=== PATIENT | male | born 1940 | race Caucasian/White ===

== ENCOUNTER 2016-06-16 13:32 | Inpatient (IN) | payer OTHER, MEDICARE ==
[~2016-06-16] VITALS: Ht 182.9 cm; Wt 98.0 kg
[~2016-06-16 13:32] MED LIST changes: -BUPIVACAINE/EPINEPHRINE 0.25% 50 ML VIAL ONE; -KETOROLAC TROMETHAMINE 30 MG/ML (IVP) VIAL IV PUSH ONE; -LACTATED RINGER'S 1000 ML INJ 1,000 ML ONE; +LACTATED RINGER'S 1000 ML INJ 2,000 ML IV ONE; +NORMOSOL R INJ 2,000 ML IV ONE; +PHENYLEPH/NS 1000 MCG/10 ML SYR IV ONE; +PHENYLEPHRINE HCL 10 MG/ML VIAL IV ONE; -ceFAZolin 2 GM PREMIX 50 ML ONE; -metroNIDAZOLE 500 MG INJ 100 ML IV ONE
[2016-06-16 13:41] VITALS: BP 96/56; PULSE 75; RESP 18; O2SAT 98
[2016-06-16 13:46] VITALS: BP 105/59; PULSE 78; RESP 18; O2SAT 98; O2SAT 99
--- NOTE | 2016-06-16 13:57 | PD ---
HPI Chief Complaint: Bleeding Time Seen by Provider: 13:38 Travel History International Travel<30 days: No Contact w/Intl Traveler<30days: No Traveled to known affect area: No History of Present Illness HPI Patient is a 76-year-old male who presents to emergency room with Dr. Alvarez for evaluation of syncopal episode. Patient had a outpatient cholecystectomy this morning, reports no complications from his cholecystectomy. Patient reports that when he got home, he felt lightheaded and dizzy. As per patient's , patient had multiple syncopal episodes today, reports that when he initially "passed out" patient's was able to catch him. Patient did not hit his head or falls the ground. reports the patient was diaphoretic and pale- appearing, reports that he had 5 episodes of syncope today. The EMS arrived on scene, patient's blood pressure was low with a systolic blood pressures in the 60s. After 1 L and 100 mL of normal saline, patient's blood pressure went up to the low 100s. Patient at this time reports pain to his abdomen. Patient denies chest pain or shortness of breath at this time. Dr. Alvarez at bedside evaluating patient, I-stat labs ordered for further evaluation of symptoms. PFSH Past Medical History ?: Not Social History Tobacco Use: No Allergies-Medications (Allergen,Severity, Reaction): Coded Allergies: No Known Allergies (Unverified , 06/16/16) Review of Systems General / Constitutional: No: Fever Eyes: No: Visual changes HENT: No: Headaches Cardiovascular: Positive: Tachycardia, Diaphoresis, No: Chest Pain or Discomfort Respiratory: No: Shortness of Breath Gastrointestinal: Positive: Abdominal Pain Genitourinary: No: Dysuria Musculoskeletal: No: Pain Skin: No Rash Neurologic: Positive: Syncope, No: Weakness Psychiatric: No: Depression Endocrine: No: Polydipsia Hematologic/Lymphatic: No: Easy Bruising Physical Exam Narrative GENERAL: Patient in moderate distress, hypotensive and emergency room SKIN: Warm and dry. HEAD: Atraumatic. Normocephalic. EYES: Pupils equal and round. No scleral icterus. No injection or drainage. ENT: No nasal bleeding or discharge. Mucous membranes pink and moist. NECK: Trachea midline. No JVD. CARDIOVASCULAR: Patient tachycardic No murmur appreciated. RESPIRATORY: No accessory muscle use. Clear to auscultation. Breath sounds equal bilaterally. GASTROINTESTINAL: Abdomen soft, non-tender, nondistended. Patient's incisions are clean, dry, intact with no obvious drainage MUSCULOSKELETAL: No obvious deformities. No clubbing. No cyanosis. No edema. NEUROLOGICAL: Awake and alert. No obvious cranial nerve deficits. Motor grossly within normal limits. Normal speech. PSYCHIATRIC: Appropriate mood and affect; insight and judgment normal. Data Data Last Documented VS Vital Signs Date Time Temp Pulse Resp B/P Pulse Ox O2 Delivery O2 Flow Rate FiO2 06/16/16 13:46 98 Nasal Cannula 2 06/16/16 13:46 78 18 105/59 Orders I-Stat Profile (06/16/16 13:38) I-Stat Creatinine (06/16/16 13:38) Complete Blood Count With Diff (06/16/16 13:38) Prothrombin Time / Inr (Pt) (06/16/16 13:38) Act Partial Throm Time (Ptt) (06/16/16 13:38) Type And Screen (06/16/16 13:38) Iv Access Insert/Monitor (06/16/16 13:38) Ecg Monitoring (06/16/16 13:38) Oximetry (06/16/16 13:38) Oxygen Administration (06/16/16 13:38) Ckmb (Isoenzyme) Profile (06/16/16 13:39) Troponin I (06/16/16 13:39) Admit Order (Ed Use Only) (06/16/16 13:57) Labs Laboratory Tests Test 06/16/16 13:54 White Blood Count 17.1 TH/MM3 Red Blood Count 3.72 MIL/MM3 Hemoglobin 11.6 GM/DL Bedside Hemoglobin 11.2 G/DL Hematocrit 33.9 % Bedside Hematocrit 33.0 % Mean Corpuscular Volume 91.1 FL Mean Corpuscular Hemoglobin 31.2 PG Mean Corpuscular Hemoglobin 34.2 % Concent Red Cell Distribution Width 12.9 % Platelet Count 283 TH/MM3 Mean Platelet Volume 8.1 FL Neutrophils (%) (Auto) 85.7 % Lymphocytes (%) (Auto) 8.0 % Monocytes (%) (Auto) 5.8 % Eosinophils (%) (Auto) 0.3 % Basophils (%) (Auto) 0.2 % Neutrophils # (Auto) 14.6 TH/MM3 Lymphocytes # (Auto) 1.4 TH/MM3 Monocytes # (Auto) 1.0 TH/MM3 Eosinophils # (Auto) 0.0 TH/MM3 Basophils # (Auto) 0.0 TH/MM3 CBC Comment DIFF FINAL Differential Comment Prothrombin Time 11.4 SEC Prothromb Time International 1.0 RATIO Ratio Activated Partial 23.0 SEC Thromboplast Time Bedside Sodium 139 MMOL/L Bedside Potassium 3.8 MMOL/L Bedside Chloride 104 MMOL/L Bedside Blood Urea Nitrogen 13 MG/DL Bedside Creatinine 0.9 MG/DL Bedside Glucose 268 MG/DL Total Creatine Kinase 35 U/L Troponin I LESS THAN 0.02 NG/ML Blood Type A POSITIVE Antibody Screen NEGATIVE Blood Bank Comment MDM Medical Decision Making Medical Screen Exam Complete: Yes Emergency Medical Condition: Yes Interpretation(s) Vital Signs Date Time Temp Pulse Resp B/P Pulse Ox O2 Delivery O2 Flow Rate FiO2 06/16/16 13:46 98 Nasal Cannula 2 06/16/16 13:46 76 18 98 Room Air 06/16/16 13:41 75 18 96/56 98 EKG at 1339: Normal sinus rhythm at 79 beats a minute, QT/QTc 417/452, patient with no acute ST or T-wave changes Differential Diagnosis Hemoperitoneum, vasovagal episode, dehydration, electrolyte abnormality, ACS Narrative Course Patient is a 76-year-old male who presents to emergency room after syncopal episode today, patient had a elective cholecystectomy this morning by Dr. Alvarez. Patient placed on machine clerical verifier, ekg obtained ISTAT labs ordered for concern of hemoperitoneum Sodium 139 Creatinine 0.9 Potassium 3.8 Chloride 104 BUN to 68 Hemoglobin 11.2 Hematocrit 33% IV fluids started on patient, plan to have patient go to the OR right now for further evaluation of possible intraperitoneal hemorrhage Dr. Alvarez will take pt to OR now Diagnosis Primary Impression: Syncope and collapse Elayne Morrison DO Jun 16, 2016 13:57
[2016-06-16 14:04] LABS: I-STAT POTASSIUM 3.8 MMOL/L (3.5-4.9)
[2016-06-16 14:05] LABS: AUTOMATED NEUTROPHIL # 14.6 TH/MM3 (1.8-7.7); BASOPHIL % 0.2 % (0.0-2.0); EOSINOPHIL % 0.3 % (0.0-4.0); HEMATOCRIT 33.9 % (39.0-51.0); HEMO FLAGS DIFF FINAL; LYMPHOCYTE # 1.4 TH/MM3 (1.0-4.8); MEAN CELL VOLUME 91.1 FL (80.0-100.0); MEAN CORPUSCULAR HEMOGLOBIN 31.2 PG (27.0-34.0); MEAN CORPUSCULAR HGB CONC 34.2 % (32.0-36.0); MONO % 5.8 % (0.0-8.0); NEUT % 85.7 % (16.0-70.0); PLATELET COUNT 283 TH/MM3 (150-450); RED BLOOD COUNT 3.72 MIL/MM3 (4.50-5.90); RED CELL DISTRIBUTION WIDTH 12.9 % (11.6-17.2); WHITE BLOOD COUNT 17.1 TH/MM3 (4.0-11.0)
[2016-06-16 14:10] LABS: PROTHROMBIN TIME - PATIENT 11.4 SEC (9.8-11.6)
[2016-06-16 14:23] LABS: CREATINE KINASE 35 U/L (39-308)
[2016-06-16] MEDS ORDERED: fentaNYL CITRATE 250 MCG/5 ML AMP ONE (14:24)
[2016-06-16] MEDS ORDERED: ACETAMINOPHEN 1000 MG/100 ML VIAL IV ONE (14:24)
[2016-06-16] MEDS ORDERED: KETAMINE HCL 500 MG/5 ML VIAL ONE (14:24)
[2016-06-16] MEDS ORDERED: HEPARIN SODIUM - SQ 10,000 UNITS/ML VIAL ONE (14:29)
[2016-06-16] MEDS ORDERED: BUPIVACAINE/EPINEPHRINE 0.25% PF 30 ML VIAL ONE (15:09)
[2016-06-16] MEDS ORDERED: SUGAMMADEX SODIUM 200 MG/2 ML VIAL IV PUSH ONE ×2 (15:26)
[2016-06-16 15:44] LABS: BLOOD GAS BASE EXCESS -6.5 mmol/L (-2-2); BLOOD GAS CARBOXYHEMOGLOBIN 1.2 % (0-4); BLOOD GAS HCO3 19 mmol/L (22-26); BLOOD GAS O2 HGB SATURATION 97 % (90-100); BLOOD GAS OXYGEN CONTENT 21.8 Vol % (12.0-20.0); BLOOD GAS PCO2 38 mmHg (38-42); BLOOD GAS PO2 231 mmHg (61-120); BLOOD GAS TOTAL HGB 15.7 G/DL (12.0-16.0); CRITICAL VALUE NO; TEMP CORR TO 98.6
[2016-06-16 15:45] LABS: OXYGEN DEVICE VENTILATOR
[2016-06-16 15:46] LABS: DRAW SITE ART LINE; FIO2 100 %; STAT YES; VENT SETTINGS OR
[2016-06-16 16:03] LABS: HEMATOCRIT 28.8 % (39.0-51.0); REVIEW FLAG FINAL
[2016-06-16] MEDS ORDERED: ONDANSETRON HCL 4 MG/2 ML VIAL IV PRN (17:15)
[2016-06-16] MEDS ORDERED: DEXTROSE 50% IN WATER 50 ML VIAL(D50) IV PRN (17:15)
[2016-06-16] MEDS ORDERED: SODIUM CHLORIDE 0.9% FLUSH 5 ML FLUSH IVF PRN (17:15)
[2016-06-16] MEDS ORDERED: diphenhydrAMINE HCL 50 MG/ML VIAL IV PRN (17:15)
[2016-06-16] MEDS ORDERED: NALOXONE HCL 0.4 MG/ML AMP IV PRN (17:15)
[2016-06-16] MEDS ORDERED: Post-op Orders (for Pharmacy) MISC XX ONE (17:15)
[2016-06-16] MEDS ORDERED: ACETAMINOPHEN/HYDROcodone 325 MG/5 MG TAB PO PRN ×2 (17:15)
[2016-06-16] MEDS ORDERED: GLUCAGON 1 MG/ML VIAL IM/SQ PRN (17:15)
--- NOTE | 2016-06-16 17:58 | PD.CONS ---
HPI Service Critical Care Medicine Consult Requested By Dr. Alvarez Reason for Consult Post-op ICU management Primary Care Physician Unknown History of Present Illness 76-year-old male underwent lap-cholecystectomy by Dr. Alvarez today at an outpatient center. Procedure was uncomplicated and he was discharged home in a stable condition. While at home he experienced of syncopal episode for which he is brought here by EMS. As per patient's , patient had multiple syncopal episodes today, reports that when he initially "passed out" patient's was able to catch him. He was taken emergently to OR for exp/lap with no obvious source of bleeding to be found. Review of Systems ROS Unable to obtain, patient lethargic post general anesthesia Past Family Social History Allergies: Coded Allergies: No Known Allergies (Unverified , 06/16/16) Past Medical History DM type 2 HTN Past Surgical History Cholecystectomy 06/16/2016 Reported Medications ASA Glipizide Lisinopril Metformin Simvastatin Vitamin C Vitamin D Active Ordered Medications Current Medications Medications (Trade) Dose Ordered Sig/Darci Route PRN Reason Start Time Stop Time Status Last Admin Dose Admin Sodium Chloride (NS 1000 ml Inj) 1,000 ml @ 100 mls/hr Q10H IV 06/16/16 18:00 IV Flush (NS Flush) 2 ml UNSCH PRN IVF FLUSH AFTER USING IV ACCESS 06/16/16 17:15 IV Flush (NS Flush) 2 ml BID IVF 06/16/16 21:00 Ondansetron HCl (Zofran Inj) 4 mg Q6H PRN IV NAUSEA OR VOMITING 06/16/16 17:15 Pantoprazole Sodium (Protonix Inj) 40 mg Q24H IV 06/16/16 18:00 Diphenhydramine HCl (Benadryl Inj) 25 mg Q6H PRN IV ITCHING 06/16/16 17:15 Miscellaneous Information (Post-op Orders (for Pharmacy)) STAT ONCE XX 06/16/16 17:15 06/16/16 17:16 UNV Acetaminophen/ Hydrocodone Bitart ([place] 5-325 Mg) 1 tab Q4H PRN PO PAIN SCALE 1 TO 5 06/16/16 17:15 Acetaminophen/ Hydrocodone Bitart ([place] 5-325 Mg) 2 tab Q6H PRN PO PAIN SCALE 6 TO 10 06/16/16 17:15 Dextrose (D50w (Vial) Inj) 25 ml UNSCH PRN IV HYPOGLYCEMIA-SEE COMMENTS 06/16/16 17:15 Glucagon (Glucagon Inj) 1 mg UNSCH PRN IM/SQ HYPOGLYCEMIA-SEE COMMENTS 06/16/16 17:15 Naloxone HCl (Narcan Inj) 0.4 mg UNSCH PRN IV RESPIRATORY RATE LESS THAN 10 06/16/16 17:15 Morphine Sulfate (Morphine 1 Mg/ ml [employer]) 30 mg UNSCH IV 06/16/16 17:15 [employer] Dosage Infused (Pha) 1 Q8HR .XX 06/16/16 17:15 Family History Noncontributory Social History Negative x 3 Physical Exam Vital Signs Vital Signs Date Time Temp Pulse Resp B/P Pulse Ox O2 Delivery O2 Flow Rate FiO2 06/16/16 13:46 98 Nasal Cannula 2 06/16/16 13:46 78 18 105/59 98 Room Air 06/16/16 13:46 76 18 98 Room Air 06/16/16 13:46 18 99 Room Air 06/16/16 13:41 75 18 96/56 98 Laboratory Laboratory Tests Test 06/16/16 06/16/16 06/16/16 13:54 15:33 15:48 White Blood Count 17.1 Red Blood Count 3.72 Hemoglobin 11.6 9.9 Bedside Hemoglobin 11.2 Hematocrit 33.9 28.8 Bedside Hematocrit 33.0 Mean Corpuscular Volume 91.1 Mean Corpuscular Hemoglobin 31.2 Mean Corpuscular Hemoglobin 34.2 Concent Red Cell Distribution Width 12.9 Platelet Count 283 Mean Platelet Volume 8.1 Neutrophils (%) (Auto) 85.7 Lymphocytes (%) (Auto) 8.0 Monocytes (%) (Auto) 5.8 Eosinophils (%) (Auto) 0.3 Basophils (%) (Auto) 0.2 Neutrophils # (Auto) 14.6 Lymphocytes # (Auto) 1.4 Monocytes # (Auto) 1.0 Eosinophils # (Auto) 0.0 Basophils # (Auto) 0.0 CBC Comment DIFF FINAL Differential Comment Prothrombin Time 11.4 Prothromb Time International 1.0 Ratio Activated Partial 23.0 Thromboplast Time Bedside Sodium 139 Bedside Potassium 3.8 Bedside Chloride 104 Bedside Blood Urea Nitrogen 13 Bedside Creatinine 0.9 Bedside Glucose 268 Total Creatine Kinase 35 Troponin I LESS THAN 0.02 Blood Type A POSITIVE Antibody Screen NEGATIVE Blood Bank Comment Blood Gas Puncture Site ART LINE Blood Gas Patient Temperature 98.6 Blood Gas HCO3 19 Blood Gas Base Excess -6.5 Blood Gas Oxygen Saturation 97 Arterial Blood pH 7.31 Arterial Blood Partial 38 Pressure CO2 Arterial Blood Partial 231 Pressure O2 Arterial Blood Oxygen Content 21.8 Arterial Blood 1.2 Carboxyhemoglobin Arterial Blood Methemoglobin 1.0 Blood Gas Hemoglobin 15.7 Oxygen Delivery Device VENTILATOR Blood Gas Ventilator Setting OR Blood Gas Inspired Oxygen 100 Result Diagram: 06/16/16 1548 Septic Shock Reassessment Heart: Regular rate and rhythm Lungs: Clear Skin: Warm Peripheral Pulses: Bounding Right Radial Bounding Left Radial Bounding Right Popliteal Bounding Left Popliteal Assessment and Plan Problem List: (1) Syncope and collapse ICD Code: R55 Status: Acute Assessment and Plan Hypotension and syncope - most probably intraabdominal bleed post laparoscopic cholecystectomy - Diagnostic laparoscopy - Exploratory laparotomy - repeat H&H Hemoperitoneum - 750 cc - No obvious bleeding source identified - supportive care DM - hold home p.o. meds - ISS if indicated HTN - normotensive post OP - will resume home dose Lisinopril when p.o. DVT/GI prophylaxis - TEDs/SCDs/Protonix Level 2 Finn Brantley MD Jun 16, 2016 17:58
[2016-06-16] MEDS: SODIUM CHLOR 0.9% 1000 ML INJ 1,000 ML IV SCH (18:00)
--- NOTE | 2016-06-16 18:04 | MH ---
cc: ALDO ARAUJO DATE OF ADMISSION: 06/16/2016 CHIEF COMPLAINT Syncope status post laparoscopic cholecystectomy. HISTORY OF PRESENT ILLNESS Mr. Goodrich is a very pleasant 76-year-old gentleman who underwent a laparoscopic cholecystectomy this morning for chronic cholecystitis at [facility]. Intraoperatively the patient had no blood loss and the surgery was technically very straightforward. The cystic artery and cystic duct were clearly seen and clipped twice proximally and once distally and then divided. The liver bed was completely hemostatic. The patient did well postoperatively, was observed for approximately two hours in the recovery room and was up ambulating and eating crackers and juice without any problem. His took him home and he was home for approximately two hours and doing well when he developed right upper quadrant abdominal pain. He told his the pain was more severe than the postoperative pain he had had earlier in the recovery room. He went to stand up and go to the bathroom and then passed out on the floor. His called 911. Paramedics arrived and noted the patient to have a blood pressure of 60/palp. IV access was obtained and the patient was fluid resuscitated. The patient became more arousable and his called our office. I spoke with her directly and advised that he be brought immediately to [facility] for evaluation. The patient was brought to [facility] by [facility] where he was met by myself and Dr. Morrison. On arrival the patient was awake, alert and oriented. He was complaining of some right upper quadrant abdominal pain. His abdomen was mildly distended certainly more distended than he was this morning when he had his procedure. I-STAT lab was obtained in the emergency department, he was found to have a hemoglobin of 11.0. His preoperative hemoglobin had been 13. The patient's initial blood pressure in the ER was 100/70. EMS reported blood pressures between 70 and 80 systolic up to a high of 110. He had a low grade tachycardia about 110. In the emergency department his tachycardia resolved and his pulse was about 85. Because of his abdominal distension and because of his multiple episodes of hypotension, I advised that he return to the operating room for a diagnostic laparoscopy to rule out any intraabdominal bleeding. The patient and were agreeable. PAST MEDICAL HISTORY Insulin-dependent diabetes mellitus. PAST SURGICAL HISTORY Please see the patient's outpatient chart as his H&P was done this morning. MEDICATIONS Please see outpatient chart. ALLERGIES Please see outpatient chart. SOCIAL HISTORY Please see outpatient chart. FAMILY HISTORY Noncontributory. SOCIAL HISTORY The patient does not smoke or drink. He lives with his [place]. PHYSICAL EXAMINATION GENERAL: This is a pleasant, elderly gentleman who appears slightly pale and a little diaphoretic. He is in no acute distress at this time. His surgical wounds are all clean and dry. VITAL SIGNS: Temperature is 98, pulse is 80, blood pressure is 105/59, respiratory rate is 22. HEENT: Oropharynx is dry with dry lips and dry oropharynx. His sclerae are white. NECK: His neck is supple. No masses. LUNGS: Clear to auscultation bilaterally. HEART: S1, S2. No murmur. ABDOMEN: Soft, distended, mildly tender, no rebound or guarding. Surgical wounds are intact with Steri-Strips in place. EXTREMITIES: Free range of motion x4. NEUROLOGIC: Alert and oriented x3. LABORATORY DATA White blood cell count is 17, hemoglobin 11, platelet count is 283. Electrolytes are all within normal limits, glucose is 268. Troponin is less than 0.02. IMPRESSION Likely postoperative bleeding status post laparoscopic cholecystectomy. Because of the patient's hypotension, I have recommended that he return to the operating room for evaluation. I believe his hemoglobin is falsely elevated, he has not been resuscitated with any significant fluid and his hemoglobin was likely lower than the 11. and patient are agreeable and he will go to the operating room immediately. MD RONNIE Morlaes/FIDELIA /5:23 PM /5:43 PM
[2016-06-16] MEDS ORDERED: DO NOT ADM ANY ANTICOAGULANT DRUGS XX PRN (18:15)
[2016-06-16] MEDS: MORPHINE SULFATE 30 MG/30 ML PCA IV SCH (18:30)
[2016-06-16 18:43] LABS: AUTOMATED NEUTROPHIL # 9.4 TH/MM3 (1.8-7.7); BASOPHIL % 0.1 % (0.0-2.0); HEMATOCRIT 28.8 % (39.0-51.0); HEMO FLAGS DIFF FINAL; LYMPH % 5.1 % (9.0-44.0); LYMPHOCYTE # 0.5 TH/MM3 (1.0-4.8); MEAN CELL VOLUME 90.3 FL (80.0-100.0); MEAN CORPUSCULAR HGB CONC 34.3 % (32.0-36.0); MONO % 6.5 % (0.0-8.0); NEUT % 88.3 % (16.0-70.0); PLATELET COUNT 194 TH/MM3 (150-450); RED BLOOD COUNT 3.19 MIL/MM3 (4.50-5.90); RED CELL DISTRIBUTION WIDTH 12.7 % (11.6-17.2); WHITE BLOOD COUNT 10.7 TH/MM3 (4.0-11.0)
[2016-06-16 18:48] LABS: PROTHROMBIN TIME - PATIENT 11.4 SEC (9.8-11.6)
[2016-06-16] MEDS: PANTOPRAZOLE SODIUM 40 MG VIAL IV SCH (18:50)
--- NOTE | 2016-06-16 20:47 | MP ---
cc: ALDO ARAUJO M.D. DATE OF SURGERY: 06/16/2016 PREOPERATIVE DIAGNOSIS: Hypotension and syncope, status post laparoscopic cholecystectomy. POSTOPERATIVE DIAGNOSIS: 1. Hypotension and syncope, status post laparoscopic cholecystectomy. 2. 750 cc hemoperitoneum. 3. No obvious bleeding source identified. PROCEDURE PERFORMED: 1. Diagnostic laparoscopy. 2. Exploratory laparotomy. SURGEON: Aldo Araujo MD. ANESTHESIA: General endotracheal anesthesia. COMPLICATIONS: None. ESTIMATED BLOOD LOSS: 750 cc hemoperitoneum. FLUIDS: 3 liters IV fluid, lactated Ringer's. 400 cc via cell saver. INDICATIONS FOR PROCEDURE: Mr. Goodrich is a pleasant 76 year-old gentleman who underwent an uneventful laparoscopic cholecystectomy this morning. Surgery was technically very straight forward and no bleeding was encountered. Cystic artery and cystic duct were clearly identified and clipped, twice proximally, once distally and divided. The liver bed was completely hemostatic with no bleeding at all, during removal of the gallbladder. Postoperatively the patient did develop a syncopal episode about five hours after the surgery. He was noted to have a low blood pressure and be pale, and was brought to [facility] where he was met by myself immediately. Based on his hypotension and abdominal distension, I recommended immediate return to the OR to rule out intra-abdominal bleeding. and were in agreement, and I was notified. INTRAOPERATIVE FINDINGS: We found about 600 cc of clotted blood within the abdominal cavity. Laparoscopically we were able to clearly visualize the liver bed which was completely hemostatic. The clips on the cystic artery and cystic duct stump were clearly seen and there was no evidence of bleeding from the clips and no bile leakage. Omentum in the area was also completely hemostatic. Just to ensure there were no additional sources of bleeding, I did elect to go ahead and open the patient in the right upper quadrant via the two 5 millimeter port sites. The abdominal cavity was explored in the right upper quadrant. Large blood clots were removed. The area was packed. On multiple occasions it was irrigated and visualized and we could not identify a significant bleeding source. There was a small amount of oozing off of the cystic duct stump and I did Bovie this with electrocautery Bovie. There was no arterial bleeding noted. There was no significant venous bleeding noted. The liver bed was completely hemostatic. The omentum was inspected in the right upper quadrant. We could not identify a bleeding source. On multiple episodes we packed and repacked the abdominal cavity, and irrigated it out. We could not stimulate any bleeding. Ute pro-coagulant was placed in the right upper quadrant along with the drain to monitor for additional bleeding. The clips on the cystic duct stump appeared to be not closed completely proximally. I elected to go ahead and take them off and I closed the cystic duct with a right angle and 0 silk suture. DETAILS The patient was identified, brought to the operating room, placed supine on the operating room table. After adequate general endotracheal anesthesia was achieved, the abdomen was prepped and draped in standard surgical fashion. Infraumbilical space was reopened. The fascial incision was reopened, the 0 Vicryl suture was removed. A 10 mm blunt port was then placed and the abdomen was insufflated. 30 degree laparoscope was inserted. Immediately we noted several large blood clots and some bloody fluid up in the right upper quadrant. A 10-mm port was placed subxiphoid and then two 5 mm ports were placed in the right upper quadrant. Using a large suction device, all blood was evacuated from the right upper quadrant. Once we did this, the liver bed was elevated with a liver retractor. The liver bed was completely hemostatic. Clips on the cystic artery and cystic duct were clearly seen. There was no evidence of bleeding from the cystic artery and no evidence of bleeding from the liver bed. On the cystic duct stump, there was a slight ooze but no arterial bleeding. I bovied this with the electrocautery Bovie distal to the clips and this oozing stopped. The right upper quadrant was copiously irrigated with normal saline solution. Several large blood clots were encountered and these could not be evacuated with the laparoscopic suction device. We thought we saw some fresh blood and, therefore, I elected to go ahead and open as we could not see any source of bleeding in the right upper quadrant laparoscopically. All ports were then removed. The two 5 millimeter port sites in the right upper quadrant were connected and the skin was opened with a scalpel. The subcutaneous tissue was dissected with electrocautery Bovie. The abdominal wall musculature was divided with the electrocautery Bovie. The peritoneum was divided sharply and the abdomen was entered. Bookwalter retractor was placed. The right upper quadrant was packed off the laparotomy pads. The laparotomy pads and blood clots were then removed. Again the liver bed was completely visualized and there was no bleeding from the liver bed whatsoever. The omentum in the right upper quadrant was also visualized and there was no bleeding from this. The cystic artery and cystic duct stumps were clearly seen and there was no bleeding from either one of these structures. On multiple occasions we irrigated out the right upper quadrant with power irrigation and packed with laparotomy pads and we could not reproduce any bleeding whatsoever. We did this at least three times and carefully inspected all areas of the right upper quadrant in the operative field. I noticed that the clips on the cystic duct stump were opened at the proximal end as the clips did not close completely. I, therefore, elected to remove them and they came off quite easily. The cystic duct stump was clearly seen and a small amount of bile came out. This was grasped with a DeBakey forceps and a right angle was placed on the cystic duct stump. The cystic duct stump was then closed with 0 silk suture underneath the right angle. With this, all bile leak stopped and the clips were removed. The cystic artery clips were intact and carefully inspected, and there was no bleeding. Again we irrigated the right upper quadrant multiple times with power irrigation. We could not reproduce any bleeding. The dome of the liver was palpated and there was no evidence of a tear, and there was no bleeding coming from up above the liver. The omentum in the right upper quadrant was carefully inspected and there was no evidence of bleeding from this. All blood clots were removed from the omentum. All-in-all we evacuated out about 750 cc of blood. This was evacuated through the cell saver and then returned to the patient. Approximately 400 cc was returned. At this point I felt comfortable there was no additional bleeding. We then irrigated out a fifth time and packed it with laparotomy pads and we removed the laparotomy pads after several minutes. They were clean and dry with no bleeding. Again we inspected the cystic artery and cystic duct stumps and there was no evidence of bleeding from the stump and there was no evidence of bile leak from the cystic duct stump. I went ahead and placed an Ute pro-coagulant in the liver bed, along the cystic duct stump and cystic artery stump. This was completely dry and the white powder did not show any evidence of ongoing bleeding. A 10 Danish Juni-Mohan drain was then inserted through a separate stab wound incision in the right upper quadrant. It was placed in the liver bed adjacent to the cystic duct and cystic artery stumps. Omentum was then placed in the right upper quadrant. All laparotomy pads were removed and ensured for the proper counts. Attention was now directed to closure. Closure was accomplished using a #1 loop PDS for the posterior and anterior fascia, with continuous running suture. 0.25% Marcaine was injected into the wound after irrigating out with warm saline solution. Subcutaneous tissue was approximated with 3-0 Vicryl and skin was closed with 4-0 Vicryl. Umbilical port site was then closed with a 0 Vicryl in [id number] fashion. Subxiphoid port site was closed with 4-0 Vicryl. The patient tolerated procedure well. He was hemodynamically stable through the procedure with no known complications. MD RONNIE Morales/COLLEEN /5:30 PM /8:24 PM
[2016-06-16] MEDS: SODIUM CHLORIDE 0.9% FLUSH 5 ML FLUSH IVF SCH (21:00)
[2016-06-16] MEDS: INSULIN NovoLIN REGULAR SUPPLEMENTAL SCALE SQ SCH (21:00)
[2016-06-16] MEDS: PCA - TOTAL MG MORPHINE DELIVERED PER SHIFT SCH (22:00)
[2016-06-17] VITALS (13 sets, daily range): BP systolic 110–152; BP diastolic 44–73; PULSE 72–90; RESP 16–21; TEMP 98.2–98.9; O2SAT 91–99
[2016-06-17] MEDS: PCA - TOTAL MG MORPHINE DELIVERED PER SHIFT SCH ×4 (00:28→22:00)
[2016-06-17] MEDS: SODIUM CHLOR 0.9% 1000 ML INJ 1,000 ML IV SCH ×2 (04:00→13:20)
[2016-06-17 05:58] LABS: AUTOMATED NEUTROPHIL # 6.8 TH/MM3 (1.8-7.7); BASOPHIL % 0.3 % (0.0-2.0); EOSINOPHIL % 0.2 % (0.0-4.0); HEMATOCRIT 26.9 % (39.0-51.0); HEMO FLAGS DIFF FINAL; LYMPH % 12.8 % (9.0-44.0); LYMPHOCYTE # 1.1 TH/MM3 (1.0-4.8); MEAN CELL VOLUME 90.3 FL (80.0-100.0); MEAN CORPUSCULAR HEMOGLOBIN 31.3 PG (27.0-34.0); MEAN CORPUSCULAR HGB CONC 34.7 % (32.0-36.0); NEUT % 78.7 % (16.0-70.0); PLATELET COUNT 189 TH/MM3 (150-450); RED BLOOD COUNT 2.97 MIL/MM3 (4.50-5.90); RED CELL DISTRIBUTION WIDTH 12.7 % (11.6-17.2); WHITE BLOOD COUNT 8.6 TH/MM3 (4.0-11.0)
[2016-06-17 06:20] LABS: BICARBONATE 24.3 MEQ/L (21.0-32.0); POTASSIUM 3.6 MEQ/L (3.5-5.1)
[2016-06-17 06:33] LABS: CALCIUM-PROTEIN CORRECTED 8.5 MG/DL (8.5-10.1)
[2016-06-17] MEDS: INSULIN NovoLIN REGULAR SUPPLEMENTAL SCALE SQ SCH ×4 (07:00→20:49)
--- NOTE | 2016-06-17 07:13 | HHI.CCPN ---
Objective Vital Signs Date Time Temp Pulse Resp B/P Pulse Ox O2 Delivery O2 Flow Rate FiO2 06/17/16 06:00 78 06/17/16 06:00 16 06/17/16 04:00 98.8 112/44 99 06/16/16 23:25 Nasal Cannula 2 Intake and Output 06/16/16 06/16/16 06/17/16 08:00 16:00 00:00 Intake Total 5165 ml Output Total 2800 ml Balance 2365 ml Result Diagram: 06/17/16 0506/17/16 05 Other Results Laboratory Tests Test 06/16/16 15:33 Blood Gas Puncture Site ART LINE Blood Gas Patient Temperature 98.6 Blood Gas HCO3 19 mmol/L (22-26) Blood Gas Base Excess -6.5 mmol/L (-2-2) Blood Gas Oxygen Saturation 97 % (90-100) Arterial Blood pH 7.31 (7.380-7.420) Arterial Blood Partial 38 mmHg (38-42) Pressure CO2 Arterial Blood Partial 231 mmHg Pressure O2 (61-120) Arterial Blood Oxygen Content 21.8 Vol % (12.0-20.0) Arterial Blood 1.2 % (0-4) Carboxyhemoglobin Arterial Blood Methemoglobin 1.0 % (0-2) Blood Gas Hemoglobin 15.7 G/DL (12.0-16.0) Oxygen Delivery Device VENTILATOR Blood Gas Ventilator Setting OR Blood Gas Inspired Oxygen 100 % A/P Problem List: (1) Syncope and collapse ICD Code: R55 Status: Acute Assessment and Plan Hypotension and syncope - Resolved - most probably intraabdominal bleed post laparoscopic cholecystectomy - Post Diagnostic laparoscopy - Post Exploratory laparotomy - repeat H&H stable - 9.9 -> 9.3 Hemoperitoneum - 750 cc - No obvious bleeding source identified - supportive care DM - hold home p.o. meds glyburide and metformin - ISS HTN - normotensive post OP - will resume home dose Lisinopril when p.o. DVT/GI prophylaxis - TEDs/SCDs/Protonix Patient has been comfortable on NC hemodynamically stable in no distress. [facility] will sign off. Please re-consult us if needed. Thank you for allowing us to participate in care of this pleasant gentleman. Level 1 Finn Brantley MD Jun 17, 2016 07:12
--- NOTE | 2016-06-17 08:28 | HHI.PR ---
Subjective Subjective Notes did well overnight, pain controlled with senior drafter, has a sore throat and some sinus drainage. Objective Vitals/I&O Vital Signs Date Time Temp Pulse Resp B/P Pulse Ox O2 Delivery O2 Flow Rate FiO2 06/17/16 06:00 78 06/17/16 06:00 16 06/17/16 04:00 98.8 112/44 99 06/16/16 23:25 Nasal Cannula 2 Labs Laboratory Tests Test 06/16/16 06/16/16 06/16/16 06/16/16 13:54 15:33 15:48 18:26 White Blood Count 17.1 10.7 Red Blood Count 3.72 3.19 Hemoglobin 11.6 9.9 9.9 Bedside Hemoglobin 11.2 Hematocrit 33.9 28.8 28.8 Bedside Hematocrit 33.0 Mean Corpuscular Volume 91.1 90.3 Mean Corpuscular Hemoglobin 31.2 31.0 Mean Corpuscular Hemoglobin 34.2 34.3 Concent Red Cell Distribution Width 12.9 12.7 Platelet Count 283 194 Mean Platelet Volume 8.1 7.3 Neutrophils (%) (Auto) 85.7 88.3 Lymphocytes (%) (Auto) 8.0 5.1 Monocytes (%) (Auto) 5.8 6.5 Eosinophils (%) (Auto) 0.3 0.0 Basophils (%) (Auto) 0.2 0.1 Neutrophils # (Auto) 14.6 9.4 Lymphocytes # (Auto) 1.4 0.5 Monocytes # (Auto) 1.0 0.7 Eosinophils # (Auto) 0.0 0.0 Basophils # (Auto) 0.0 0.0 CBC Comment DIFF FINAL DIFF FINAL Differential Comment Prothrombin Time 11.4 11.4 Prothromb Time International 1.0 1.0 Ratio Activated Partial 23.0 Thromboplast Time Bedside Sodium 139 Bedside Potassium 3.8 Bedside Chloride 104 Bedside Blood Urea Nitrogen 13 Bedside Creatinine 0.9 Bedside Glucose 268 Total Creatine Kinase 35 Troponin I LESS THAN 0.02 Blood Type A POSITIVE Antibody Screen NEGATIVE Blood Bank Comment Blood Gas Puncture Site ART LINE Blood Gas Patient Temperature 98.6 Blood Gas HCO3 19 Blood Gas Base Excess -6.5 Blood Gas Oxygen Saturation 97 Arterial Blood pH 7.31 Arterial Blood Partial 38 Pressure CO2 Arterial Blood Partial 231 Pressure O2 Arterial Blood Oxygen Content 21.8 Arterial Blood 1.2 Carboxyhemoglobin Arterial Blood Methemoglobin 1.0 Blood Gas Hemoglobin 15.7 Oxygen Delivery Device VENTILATOR Blood Gas Ventilator Setting OR Blood Gas Inspired Oxygen 100 Test 06/17/16 05:20 White Blood Count 8.6 Red Blood Count 2.97 Hemoglobin 9.3 Hematocrit 26.9 Mean Corpuscular Volume 90.3 Mean Corpuscular Hemoglobin 31.3 Mean Corpuscular Hemoglobin 34.7 Concent Red Cell Distribution Width 12.7 Platelet Count 189 Mean Platelet Volume 7.9 Neutrophils (%) (Auto) 78.7 Lymphocytes (%) (Auto) 12.8 Monocytes (%) (Auto) 8.0 Eosinophils (%) (Auto) 0.2 Basophils (%) (Auto) 0.3 Neutrophils # (Auto) 6.8 Lymphocytes # (Auto) 1.1 Monocytes # (Auto) 0.7 Eosinophils # (Auto) 0.0 Basophils # (Auto) 0.0 CBC Comment DIFF FINAL Differential Comment Sodium Level 141 Potassium Level 3.6 Chloride Level 109 Carbon Dioxide Level 24.3 Anion Gap 8 Blood Urea Nitrogen 9 Creatinine 0.76 Estimat Glomerular Filtration 99 Rate Random Glucose 190 Calcium Level 7.1 Protein Corrected Calcium 8.5 Total Protein 4.6 Cardiovascular: Regular Lungs: Clear Abdomen: Post-op tenderness Narrative Exam abdomen distended and quiet. wounds clean/dry A/P Assessment and Plan pod 1 lap michael, pod 1 diag lap, exp lap for hemoperitoneum from undetermined source stable leave NG in for expected ileus monitor INNA output, FU CBC in am OOB DC Jean Pillai MD Jun 17, 2016 08:28
[2016-06-17] MEDS: SODIUM CHLORIDE 0.9% FLUSH 5 ML FLUSH IVF SCH ×2 (09:34→20:49)
[2016-06-17] MEDS: BENZOCAINE 6 MG/MENTHOL 10 MG LOZENGE BUCCAL PRN (16:17)
[2016-06-17] MEDS: PANTOPRAZOLE SODIUM 40 MG VIAL IV SCH (18:02)
[2016-06-18] VITALS (12 sets, daily range): BP systolic 112–153; BP diastolic 56–78; PULSE 69–84; RESP 13–23; TEMP 97.7–99.1; O2SAT 96–98
[2016-06-18] MEDS: MORPHINE SULFATE 30 MG/30 ML PCA IV SCH (02:57)
[2016-06-18] MEDS: BENZOCAINE 6 MG/MENTHOL 10 MG LOZENGE BUCCAL PRN (03:01)
[2016-06-18 04:32] LABS: AUTOMATED NEUTROPHIL # 5.5 TH/MM3 (1.8-7.7); BASOPHIL % 0.4 % (0.0-2.0); EOSINOPHIL # 0.1 TH/MM3 (0-0.4); HEMATOCRIT 25.3 % (39.0-51.0); HEMO FLAGS DIFF FINAL; LYMPH % 16.2 % (9.0-44.0); LYMPHOCYTE # 1.2 TH/MM3 (1.0-4.8); MEAN CELL VOLUME 90.8 FL (80.0-100.0); MEAN CORPUSCULAR HEMOGLOBIN 31.9 PG (27.0-34.0); MEAN CORPUSCULAR HGB CONC 35.2 % (32.0-36.0); MONO % 8.9 % (0.0-8.0); NEUT % 72.5 % (16.0-70.0); PLATELET COUNT 160 TH/MM3 (150-450); RED BLOOD COUNT 2.79 MIL/MM3 (4.50-5.90); RED CELL DISTRIBUTION WIDTH 13.2 % (11.6-17.2); WHITE BLOOD COUNT 7.5 TH/MM3 (4.0-11.0)
[2016-06-18 05:13] LABS: BICARBONATE 28.8 MEQ/L (21.0-32.0); CALCIUM-PROTEIN CORRECTED 8.3 MG/DL (8.5-10.1); MAGNESIUM 1.8 MG/DL (1.5-2.5); POTASSIUM 3.3 MEQ/L (3.5-5.1); TOTAL BILIRUBIN ADULT 0.6 MG/DL (0.2-1.0)
[2016-06-18] MEDS: PCA - TOTAL MG MORPHINE DELIVERED PER SHIFT SCH ×3 (06:00→22:00)
[2016-06-18] MEDS: INSULIN NovoLIN REGULAR SUPPLEMENTAL SCALE SQ SCH ×4 (06:15→20:50)
[2016-06-18] MEDS: SODIUM CHLORIDE 0.9% FLUSH 5 ML FLUSH IVF SCH ×2 (09:00→20:15)
--- NOTE | 2016-06-18 09:11 | HHI.PR ---
Subjective Subjective Notes Resting in bed; Wants to get to chair this morning Likes the popsicles and ice Wants NGT out if possible Objective Vitals/I&O Vital Signs Date Time Temp Pulse Resp B/P Pulse Ox O2 Delivery O2 Flow Rate FiO2 06/18/16 07:00 98 Nasal Cannula 2.00 06/18/16 06:00 18 06/18/16 06:00 73 06/18/16 04:00 98.3 131/62 Labs Laboratory Tests Test 06/18/16 03:19 White Blood Count 7.5 Red Blood Count 2.79 Hemoglobin 8.9 Hematocrit 25.3 Mean Corpuscular Volume 90.8 Mean Corpuscular Hemoglobin 31.9 Mean Corpuscular Hemoglobin 35.2 Concent Red Cell Distribution Width 13.2 Platelet Count 160 Mean Platelet Volume 8.0 Neutrophils (%) (Auto) 72.5 Lymphocytes (%) (Auto) 16.2 Monocytes (%) (Auto) 8.9 Eosinophils (%) (Auto) 2.0 Basophils (%) (Auto) 0.4 Neutrophils # (Auto) 5.5 Lymphocytes # (Auto) 1.2 Monocytes # (Auto) 0.7 Eosinophils # (Auto) 0.1 Basophils # (Auto) 0.0 CBC Comment DIFF FINAL Differential Comment Sodium Level 145 Potassium Level 3.3 Chloride Level 110 Carbon Dioxide Level 28.8 Anion Gap 6 Blood Urea Nitrogen 8 Creatinine 0.90 Estimat Glomerular Filtration 82 Rate Random Glucose 162 Calcium Level 7.3 Protein Corrected Calcium 8.3 Phosphorus Level 1.2 Magnesium Level 1.8 Total Bilirubin 0.6 Aspartate Amino Transf 20 (AST/SGOT) Alanine Aminotransferase 41 (ALT/SGPT) Alkaline Phosphatase 62 Total Protein 5.3 Albumin 2.5 Cardiovascular: Regular Lungs: Clear Abdomen: Other (distended; lap sites c/d/i; RUQ incision c/d/i ), Post-op tenderness Extremities: Other (generalized edema ) A/P Assessment and Plan 76 year old male POD2 lap michael [facility] and POD2 ex lap for hemoperitoneum from undetermined source -VSS -Leave NGT to LIWS -Okay to continue ice chips and popsicles -Monitor INNA output -Hmg stale at 8.9 today -OOB to chair -Replace K -I will check back later this afternoon on abdominal distention -CHARLI Church at bedside Attending Statement pt seen at bedside still distended, hh stable clamp ng possibly d/c if low residues Attestation The exam, history, and the medical decision-making described in the above note were completed with the assistance of the mid-level provider. I reviewed and agree with the findings presented. I attest that I had a [id number] encounter with the patient on the same day, and personally performed and documented my assessment and findings in the medical record. Roxanne Wyatt Jun 18, 2016 09:11 Lleand Montoya MD Jun 20, 2016 20:16
[2016-06-18] MEDS: SODIUM CHLOR 0.9% 1000 ML INJ 1,000 ML IV SCH (09:33)
[2016-06-18] MEDS ORDERED: FUROSEMIDE 20 MG/2 ML VIAL IV PUSH ONE (10:00)
[2016-06-18] MEDS: POTASSIUM CHLOR 20 MEQ PREMIX 100 ML IV SCH ×2 (10:58→12:16)
[2016-06-18] MEDS: PANTOPRAZOLE SODIUM 40 MG VIAL IV SCH (17:25)
[2016-06-18] MEDS ORDERED: POTASSIUM PHOSPHATE INJ 30 MMOL in SODIUM CHLOR 0.9% 250 ML INJ 250 ML IV ONE (21:00)
[2016-06-19] VITALS (11 sets, daily range): BP systolic 130–154; BP diastolic 64–81; PULSE 62–73; RESP 16–21; TEMP 97.6–98.9; O2SAT 97–99
[2016-06-19] MEDS: SODIUM CHLOR 0.9% 1000 ML INJ 1,000 ML IV SCH ×2 (05:33→20:31)
[2016-06-19 05:50] LABS: AUTOMATED NEUTROPHIL # 4.1 TH/MM3 (1.8-7.7); BASOPHIL % 0.3 % (0.0-2.0); EOSINOPHIL # 0.3 TH/MM3 (0-0.4); EOSINOPHIL % 5.4 % (0.0-4.0); HEMATOCRIT 24.5 % (39.0-51.0); HEMO FLAGS DIFF FINAL; LYMPH % 17.9 % (9.0-44.0); LYMPHOCYTE # 1.1 TH/MM3 (1.0-4.8); MEAN CELL VOLUME 90.4 FL (80.0-100.0); MEAN CORPUSCULAR HEMOGLOBIN 31.4 PG (27.0-34.0); MEAN CORPUSCULAR HGB CONC 34.7 % (32.0-36.0); NEUT % 68.4 % (16.0-70.0); PLATELET COUNT 160 TH/MM3 (150-450); RED BLOOD COUNT 2.71 MIL/MM3 (4.50-5.90); RED CELL DISTRIBUTION WIDTH 12.4 % (11.6-17.2)
[2016-06-19] MEDS: PCA - TOTAL MG MORPHINE DELIVERED PER SHIFT SCH ×3 (06:00→21:19)
[2016-06-19 06:08] LABS: BICARBONATE 26.1 MEQ/L (21.0-32.0); POTASSIUM 3.3 MEQ/L (3.5-5.1)
[2016-06-19 06:13] LABS: CALCIUM-PROTEIN CORRECTED 8.3 MG/DL (8.5-10.1); TOTAL BILIRUBIN ADULT 0.5 MG/DL (0.2-1.0)
[2016-06-19] MEDS: INSULIN NovoLIN REGULAR SUPPLEMENTAL SCALE SQ SCH ×4 (06:47→21:00)
[2016-06-19] MEDS: SODIUM CHLORIDE 0.9% FLUSH 5 ML FLUSH IVF SCH ×2 (09:00→20:32)
[2016-06-19] MEDS ORDERED: POTASSIUM PHOSPHATE MONOBASIC 500 MG TAB PO/TUBE PRN (11:00)
[2016-06-19] MEDS ORDERED: POTASSIUM CHLOR 20 MEQ PREMIX 100 ML IV PRN ×2 (11:00)
[2016-06-19] MEDS ORDERED: POTASSIUM CHLOR 40 MEQ PREMIX 100 ML IV PRN ×2 (11:00)
[2016-06-19] MEDS ORDERED: MAGNESIUM SULFATE INJ 2 GM in SODIUM CHLORIDE 0.9% INJ 96 ML IV PRN (11:00)
[2016-06-19] MEDS ORDERED: MAGNESIUM SULFATE INJ 4 GM in SODIUM CHLORIDE 0.9% INJ 92 ML IV PRN (11:00)
[2016-06-19] MEDS ORDERED: POTASSIUM PHOSPHATE INJ 30 MMOL in SODIUM CHLOR 0.9% 250 ML INJ 250 ML IV PRN (11:00)
[2016-06-19] MEDS ORDERED: MAGNESIUM OXIDE 400 MG TAB PO PRN (11:00)
[2016-06-19] MEDS ORDERED: POTASSIUM CL 40 MEQ/30 ML LIQ UDC PO/TUBE PRN ×2 (11:00)
[2016-06-19] MEDS ORDERED: SODIUM PHOSPHATE INJ 30 MMOL in SODIUM CHLOR 0.9% 250 ML INJ 240 ML IV PRN (11:00)
[2016-06-19] MEDS ORDERED: POTASSIUM PHOSPHATE MONOBASIC 500 MG TAB PO PRN (11:00)
--- NOTE | 2016-06-19 11:03 | HHI.PR ---
Subjective Subjective Notes feels better, still distended, no vomiting, no flatus, no bm Objective Vitals/I&O Vital Signs Date Time Temp Pulse Resp B/P Pulse Ox O2 Delivery O2 Flow Rate FiO2 06/19/16 10:00 67 06/19/16 08:00 97.6 16 146/71 98 06/19/16 07:00 Room Air 06/18/16 07:00 2.00 Labs Laboratory Tests Test 06/19/16 05:20 White Blood Count 6.0 Red Blood Count 2.71 Hemoglobin 8.5 Hematocrit 24.5 Mean Corpuscular Volume 90.4 Mean Corpuscular Hemoglobin 31.4 Mean Corpuscular Hemoglobin 34.7 Concent Red Cell Distribution Width 12.4 Platelet Count 160 Mean Platelet Volume 8.1 Neutrophils (%) (Auto) 68.4 Lymphocytes (%) (Auto) 17.9 Monocytes (%) (Auto) 8.0 Eosinophils (%) (Auto) 5.4 Basophils (%) (Auto) 0.3 Neutrophils # (Auto) 4.1 Lymphocytes # (Auto) 1.1 Monocytes # (Auto) 0.5 Eosinophils # (Auto) 0.3 Basophils # (Auto) 0.0 CBC Comment DIFF FINAL Differential Comment Sodium Level 146 Potassium Level 3.3 Chloride Level 111 Carbon Dioxide Level 26.1 Anion Gap 9 Blood Urea Nitrogen 7 Creatinine 0.67 Estimat Glomerular Filtration 115 Rate Random Glucose 153 Calcium Level 7.3 Protein Corrected Calcium 8.3 Phosphorus Level 2.0 Total Bilirubin 0.5 Aspartate Amino Transf 9 (AST/SGOT) Alanine Aminotransferase 28 (ALT/SGPT) Alkaline Phosphatase 58 Total Protein 5.3 Albumin 2.3 Cardiovascular: Regular Lungs: Clear Abdomen: Other (soft distneded, dressing c/d/i) A/P Assessment and Plan 76 year old male s/p lap michael at surgery center and POD2 ex lap for hemoperitoneum from undetermined source- doing better still distended -VSS -d/c ng -clears -Monitor INNA output -Hmg at 8.5 today, recheck tomorrow -OOB to chair -Replace lytes -transfer to floor Leland Montoya MD Jun 19, 2016 11:03
[2016-06-19] MEDS: PANTOPRAZOLE SODIUM 40 MG VIAL IV SCH (18:23)
[2016-06-20] VITALS (8 sets, daily range): BP systolic 115–128; BP diastolic 55–66; PULSE 61–80; RESP 17–18; TEMP 98.2–99.1; O2SAT 96–98
[2016-06-20] MEDS: PCA - TOTAL MG MORPHINE DELIVERED PER SHIFT SCH (06:00)
[2016-06-20] MEDS: INSULIN NovoLIN REGULAR SUPPLEMENTAL SCALE SQ SCH ×4 (06:01→20:50)
[2016-06-20] MEDS: SODIUM CHLORIDE 0.9% FLUSH 5 ML FLUSH IVF SCH ×2 (07:53→20:52)
[2016-06-20] MEDS ORDERED: ACETAMINOPHEN/HYDROcodone 325 MG/5 MG TAB PO PRN ×2 (10:45)
--- NOTE | 2016-06-20 10:54 | HHI.FF ---
Face to Face Verification Diagnosis: (1) Syncope and collapse (2) S/P cholecystectomy Physical Therapy Order: Evaluate and Treat, Improve ambulation, Strength and gait training Instructions: No restrictions; pt has walker at home Home Health Nursing Order: Wound care and dressing changes Instructions: INNA care--- monitoring and recording output; clear dry dressing around INNA drain; change daily and PRN I have seen patient Elgin Goodrich on 06/20/16. My clinical findings support the need for the requested home health care services because: Limited ability to care for self I certify that my clinical findings support that this patient is homebound because: Post-op weakness Zacarias Carrillo MD Jun 20, 2016 10:54 Roxanne Wyatt Jun 21, 2016 07:29
--- NOTE | 2016-06-20 10:59 | HHI.PR ---
Subjective Subjective Notes Feels well; passing flatus and had BM No abdominal pain; did not use [employer] Objective Vitals/I&O Vital Signs Date Time Temp Pulse Resp B/P Pulse Ox O2 Delivery O2 Flow Rate FiO2 06/20/16 08:00 98.2 72 18 128/66 96 06/19/16 20:00 Room Air 06/18/16 07:00 2.00 Labs Laboratory Tests Test 06/19/16 12:42 Phosphorus Level 1.6 Lungs: Clear Abdomen: Other (Moderate distention, but nontender) Extremities: No edema Narrative Exam Some bloody drainage around INNA site; tubing stripped 60 ml output overnight A/P Assessment and Plan POD #4 ex lap; doing extremely well Plan: Advance Diet D/C vance Keep INNA in; will need HHC Recheck labs in AM Change to PO pain meds. Zacarias Carrillo MD Jun 20, 2016 10:59
[2016-06-20] MEDS: FAMOTIDINE 20 MG TAB PO SCH (20:46)
[2016-06-21] VITALS: BP 117/57; PULSE 71; RESP 18; TEMP 98.6; O2SAT 95
[2016-06-21] MEDS ORDERED: LORazepam 1 MG TAB PO ONE (00:15)
[2016-06-21 04:00] VITALS: BP 130/63; PULSE 62; RESP 18; TEMP 98.2; O2SAT 97
[2016-06-21] MEDS: INSULIN NovoLIN REGULAR SUPPLEMENTAL SCALE SQ SCH (07:00)
[2016-06-21 07:14] LABS: AUTOMATED NEUTROPHIL # 2.9 TH/MM3 (1.8-7.7); BASOPHIL % 0.5 % (0.0-2.0); EOSINOPHIL # 0.4 TH/MM3 (0-0.4); EOSINOPHIL % 8.4 % (0.0-4.0); HEMATOCRIT 23.7 % (39.0-51.0); HEMO FLAGS DIFF FINAL; LYMPH % 20.3 % (9.0-44.0); MEAN CELL VOLUME 88.7 FL (80.0-100.0); MEAN CORPUSCULAR HEMOGLOBIN 30.8 PG (27.0-34.0); MEAN CORPUSCULAR HGB CONC 34.7 % (32.0-36.0); MONO % 10.4 % (0.0-8.0); NEUT % 60.4 % (16.0-70.0); PLATELET COUNT 159 TH/MM3 (150-450); RED BLOOD COUNT 2.67 MIL/MM3 (4.50-5.90); RED CELL DISTRIBUTION WIDTH 12.7 % (11.6-17.2); WHITE BLOOD COUNT 4.9 TH/MM3 (4.0-11.0)
--- NOTE | 2016-06-21 07:31 | HHI.PR ---
Subjective Subjective Notes Up to chair at bedside Feels much better Wants to go home if okay with Dr. Alvarez Objective Vitals/I&O Vital Signs Date Time Temp Pulse Resp B/P Pulse Ox O2 Delivery O2 Flow Rate FiO2 06/21/16 04:00 98.2 62 18 130/63 97 06/20/16 20:20 Room Air 06/18/16 07:00 2.00 Labs Laboratory Tests Test 06/21/16 06:12 White Blood Count 4.9 Red Blood Count 2.67 Hemoglobin 8.2 Hematocrit 23.7 Mean Corpuscular Volume 88.7 Mean Corpuscular Hemoglobin 30.8 Mean Corpuscular Hemoglobin 34.7 Concent Red Cell Distribution Width 12.7 Platelet Count 159 Mean Platelet Volume 7.6 Neutrophils (%) (Auto) 60.4 Lymphocytes (%) (Auto) 20.3 Monocytes (%) (Auto) 10.4 Eosinophils (%) (Auto) 8.4 Basophils (%) (Auto) 0.5 Neutrophils # (Auto) 2.9 Lymphocytes # (Auto) 1.0 Monocytes # (Auto) 0.5 Eosinophils # (Auto) 0.4 Basophils # (Auto) 0.0 CBC Comment DIFF FINAL Differential Comment Cardiovascular: Regular Lungs: Clear Abdomen: Other (RUQ incision with steri-strips in place; lap sites c/d/i; INNA with SS drainage; minimal drainage at skin ) Extremities: No edema A/P Assessment and Plan 76 year old male POD5 lap michael at [facility] and POD2 ex lap for hemoperitoneum from undetermined source -VSS -Regular diet -+BM -Monitor INNA output;change 4x4 as needed -Hmg stale -OOB to chair -C with PT ---face to face complete I ATTEST AND CERTIFY THAT I PERSONALLY WENT IN THIS PATIENT'S ROOM AND EXAMINED THEM WITH THE HYDROELECTRIC STATION OPERATOR. WE REVIEWED THE EMR AND I GAVE ORDERS DIRECTED THE CARE. THE HYDROELECTRIC STATION OPERATOR DOCUMENTED OUR VISIT AND ENTERED THE ORDERS UNDER MY DIRECT SUPERVISION. I REVIEWED THE CARE PLAN WITH THE PATIENT AND NURSING STAFF. I DISCUSSED THE PLAN WITH THE FAMILY IF THEY WERE PRESENT. Roxanne Childers MD, FACS Jun 21, 2016 07:31 Jean Alvarez MD Jun 23, 2016 09:03
[2016-06-21 07:40] LABS: BICARBONATE 26.7 MEQ/L (21.0-32.0); POTASSIUM 3.2 MEQ/L (3.5-5.1)
[2016-06-21 08:00] VITALS: BP 130/70; PULSE 61; RESP 20; TEMP 98; O2SAT 97
[2016-06-21] MEDS: FAMOTIDINE 20 MG TAB PO SCH (08:10)
[2016-06-21] MEDS: SODIUM CHLORIDE 0.9% FLUSH 5 ML FLUSH IVF SCH (08:10)
[2016-06-21 08:20] VITALS: PULSE 62
--- NOTE | 2016-06-21 10:06 | HHI.DS ---
Discharge Summary Admission Date Jun 16, 2016 at 13:59 Discharge Date: Jun 21, 2016 Admitting Diagnosis Syncope Procedures diagnostic laparoscopy, exploratory laparotomy Brief History had lap michael in am, went home several hours later and passed out. found to be hypotensive by paramedics, brought to hospital and taken back to OR. 750cc hemoperitoneum evacuated, bleeding source unable to be identified. had normal post op course. CBC/BMP: 06/21/16 0612 06/21/16 0612 Significant Findings Laboratory Tests Test 06/19/16 06/19/16 06/21/16 05:20 12:42 06:12 Red Blood Count 2.71 MIL/MM3 2.67 MIL/MM3 (4.50-5.90) (4.50-5.90) Hemoglobin 8.5 GM/DL 8.2 GM/DL (13.0-17.0) (13.0-17.0) Hematocrit 24.5 % 23.7 % (39.0-51.0) (39.0-51.0) Eosinophils (%) (Auto) 5.4 % (0.0-4.0) 8.4 % (0.0-4.0) Sodium Level 146 MEQ/L (136-145) Potassium Level 3.3 MEQ/L 3.2 MEQ/L (3.5-5.1) (3.5-5.1) Chloride Level 111 MEQ/L 109 MEQ/L (98-107) (98-107) Random Glucose 153 MG/DL 177 MG/DL (74-106) (74-106) Calcium Level 7.3 MG/DL 7.9 MG/DL (8.5-10.1) (8.5-10.1) Protein Corrected Calcium 8.3 MG/DL (8.5-10.1) Phosphorus Level 2.0 MG/DL 1.6 MG/DL (2.5-4.9) (2.5-4.9) Aspartate Amino Transf 9 U/L (15-37) (AST/SGOT) Total Protein 5.3 GM/DL (6.4-8.2) Albumin 2.3 GM/DL (3.4-5.0) Monocytes (%) (Auto) 10.4 % (0.0-8.0) PE at Discharge Some bloody drainage around INNA site; tubing stripped 60 ml output overnight Hospital Course returned to [facility] to evaluation of post op bleeding, no source identified. had normal post op course. Pt Condition on Discharge: Good Discharge Disposition: Discharge Home Discharge Instructions DIET: Follow Instructions for: As Tolerated, No Restrictions, Heart Healthy Diet Activities you can perform: Regular-No Restrictions Activities to Avoid: Prolonged Standing, Strenuous Activity Jean Alvarez MD Jun 21, 2016 10:06
== END 2016-06-21 10:32 | disposition home or self-care (01) | DRG 907 ==
LOC: HOR 13:32 → OBSVTOIN 13:59 → NEDA 13:59 → N03A 23:58 → N04A 06-19 17:00
PROVIDERS: ADMIT Surgery Trauma Surgery; ATTEND Surgery Trauma Surgery
PROC: 0W9G4ZZ Drainage of Peritoneal Cavity, Percutaneous Endoscopic Approach (ICD-10-PCS; 2016-06-16)
PROC: 0W3P0ZZ Control Bleeding in Gastrointestinal Tract, Open Approach (ICD-10-PCS; principal; 2016-06-16 14:26)
PROC: 0FT44ZZ Resection of Gallbladder, Percutaneous Endoscopic Approach (ICD-10-PCS; 2016-06-16 14:26)
DX: K91.840 Postprocedural hemorrhage of a digestive system organ or structure following a digestive system procedure (principal); K66.1 Hemoperitoneum; K80.10 Calculus of gallbladder with chronic cholecystitis without obstruction; E11.9 Type 2 diabetes mellitus without complications; R55 Syncope and collapse; I10 Essential (primary) hypertension; Y83.6 Removal of other organ (partial) (total) as the cause of abnormal reaction of the patient, or of later complication, without mention of misadventure at the time of the procedure; Z79.4 Long term (current) use of insulin; Z90.49 Acquired absence of other specified parts of digestive tract
CPT/HCPCS: 76937; 80048; 80053; 82435; 82550; 82565; 82805; 82947; 82948; 83735; 84100; 84132; 84155; 84295; 84484; 84520; 85014; 85018; 85025; 85610; 85730; 86850; 86900; 86901; 88304; 94150; C9113; J0131; J0690; J1644; J1885; J1940; J2270; J2370; J2405; J3010; J3480; J7030; J7050; J7120

== ENCOUNTER → 2016-06-16 | Day surgery (SDC) | payer OTHER ==
[~2016-06-16] MED LIST: BUPIVACAINE/EPINEPHRINE 0.25% 50 ML VIAL ONE; KETOROLAC TROMETHAMINE 30 MG/ML (IVP) VIAL IV PUSH ONE; LACTATED RINGER'S 1000 ML INJ 1,000 ML ONE; ONDANSETRON HCL 4 MG/2 ML VIAL IV PUSH ONE; PROPOFOL 200 MG/20 ML AMP IV ONE; ceFAZolin 2 GM PREMIX 50 ML ONE; metroNIDAZOLE 500 MG INJ 100 ML IV ONE
--- NOTE | 2016-06-16 10:41 | TN ---
cc: ALDO ARAUJO M.D. DATE OF SURGERY: 06/16/2016 PREOPERATIVE DIAGNOSIS Chronic cholecystitis. POSTOPERATIVE DIAGNOSIS Chronic cholecystitis. PROCEDURE PERFORMED Laparoscopic cholecystectomy. SURGEON Aldo Araujo MD ANESTHESIA General endotracheal. COMPLICATIONS None. INDICATION FOR PROCEDURE Mr. Goodrich is a pleasant 76-year-old gentleman who developed a severe episode of right upper quadrant abdominal pain after eating a [employer] breakfast. He was seen by his primary physician and sent for an ultrasound. Ultrasound showed thickened gallbladder wall with a small amount of pericholecystic fluid as well as gallstones and sludge. It was felt acute cholecystitis was his most likely diagnosis. He was referred for surgical evaluation. The patient was seen and evaluated in the office. The patient reports several previous episodes of right upper quadrant postprandial abdominal pain. He was offered elective cholecystectomy. Risks and benefits of open laparoscopic cholecystectomy was discussed with him and he was agreeable. DETAILS OF PROCEDURE The patient was identified, brought to the operating room and placed supine on the operating table. After adequate general endotracheal anesthesia was achieved the abdomen was prepped and draped in standard surgical fashion. Infraumbilical space was anesthetized with 0.25% Marcaine. Infraumbilical incision was made. Dissection was carried down through subcutaneous tissue to midline fascia. Midline fascia was then incised sharply. A finger was then placed in the peritoneal cavity without difficulty. Blunt balloon trocar was inserted and the abdomen was insufflated to 15 mmHg using CO2 gas. Next, two 5 mm trocars were placed in the right upper quadrant after anesthetizing the skin and subcutaneous tissue with 0.25% Marcaine. Attention was directed to the gallbladder which was noted to be distended and fairly large. Gallbladder was retracted cephalad. Gallbladder neck was then carefully dissected. Cystic artery and cystic duct were clearly identified in two planes. Once they were confirmed in two planes they were clipped twice proximally, once distally and then divided. Gallbladder was then dissected out of the hepatic fossa using electrocautery Bovie. Gallbladder was placed in the Endopouch bag and brought out through the infraumbilical port. Gallbladder was inspected and clips were found to be in place. Gallbladder was sent to pathology for analysis. Next the abdominal cavity was revisualized. Liver bed was hemostatic. Clips were in place on the cystic artery and cystic duct stump without evidence of leakage of bile or bleeding. 0.25% Marcaine was injected into the operative field. All trocars were removed under direct vision. Midline fascia was repaired with 0 Vicryl in [id number] fashion. Skin was closed with 4-0 Vicryl. The patient tolerated the procedure well, was awakened and brought to recovery in stable condition. Aldo MD RONNIE Araujo/JAIRO /10:03 AM /10:29 AM
== END | disposition home or self-care (01) ==
LOC: ESDC 07:08
PROVIDERS: ATTEND Surgery Trauma Surgery
DX: K80.10 Calculus of gallbladder with chronic cholecystitis without obstruction (principal)
CPT/HCPCS: 00790; 47562; 88304; J0690; J1885; J2405; J3010; J7120